=== PATIENT | female | born 1955 | race Caucasian/White ===

== ENCOUNTER 2017-08-14 10:57 | Day surgery (SDC) | payer BC ==
[~2017-08-14] VITALS: Ht 167.6 cm; Wt 89.4 kg
[2017-08-14 11:52] VITALS: BP 112/78
[2017-08-14] MEDS ORDERED: ESTR10TA PO (12:06)
[2017-08-14] MEDS ORDERED: BUPR300T4 PO (12:06)
[2017-08-14] MEDS ORDERED: LEVO88TA4 PO (12:06)
[2017-08-14] MEDS ORDERED: FEXO180T72 PO (12:06)
[2017-08-14] MEDS ORDERED: MULT1CAP19 PO (12:06)
[2017-08-14] MEDS ORDERED: TRAM50TA2 PO (12:06)
[2017-08-14] MEDS ORDERED: ARMO150T4 PO (12:06)
[2017-08-14] MEDS ORDERED: DOCU100C33 PO (12:06)
[2017-08-14] MEDS ORDERED: BIOT5000 PO (12:06)
[2017-08-14] MEDS ORDERED: MIDAZOLAM 1 MG/ML, 2ML ONE (12:17)
[2017-08-14] MEDS ORDERED: LACTATED RINGERS 1,000 ML IV SCH (12:20)
[2017-08-14] MEDS: FENTANYL PF 100 MCG/2ML IV PRN ×2 (12:25→15:50)
[2017-08-14] MEDS ORDERED: NEOSPORIN OINT, 15GM ONE (12:33)
[2017-08-14] MEDS ORDERED: EPINEPHRINE 1 MG/ML, 1ML ONE (12:33)
[2017-08-14] MEDS ORDERED: BUPIVACAINE/PF 0.5% ONE (12:33)
[2017-08-14] MEDS ORDERED: PROMETHAZINE 12.5 MG SUPP PR PRN (13:00)
[2017-08-14] MEDS ORDERED: PROMETHAZINE 25 MG/ML, 1ML IV PRN (13:00)
[2017-08-14] MEDS ORDERED: hydrALAzine 20 MG/ML, 1ML IV PRN (13:00)
[2017-08-14] MEDS ORDERED: OXYcodone 5 MG/5 ML ORAL.SOL UDC PO PRN (13:00)
[2017-08-14] MEDS ORDERED: LABETALOL 5MG/ML, 20ML IV PRN (13:00)
[2017-08-14] MEDS ORDERED: MIDAZOLAM 1 MG/ML, 2ML IV PRN (13:00)
[2017-08-14] MEDS ORDERED: ALBUTEROL/IPRATROPIUM 2.5MG/0.5MG, 3 ML NPPB PRN (13:00)
[2017-08-14] MEDS ORDERED: DIAZEPAM 5 MG/ML, 2ML IVPush PRN (13:00)
[2017-08-14] MEDS ORDERED: LORazepam 2 MG/ML, 1ML IVPush PRN (13:00)
[2017-08-14] MEDS ORDERED: MEPERIDINE/PF 25MG/0.5ML IVPush PRN (13:00)
[2017-08-14] MEDS ORDERED: ONDANSETRON 2MG/ML, 2ML IVPush PRN (13:00)
[2017-08-14] MEDS ORDERED: GABAPENTIN 300 MG CAPSULE ONE (13:51)
[2017-08-14] MEDS ORDERED: GABAPENTIN 300 MG CAPSULE PO SCH (14:00)
[2017-08-14] MEDS ORDERED: GABAPENTIN 300 MG CAPSULE PO ONE (14:00)
[2017-08-14] MEDS ORDERED: PROPOFOL 10 MG/ML, 20ML ONE (14:01)
[2017-08-14] MEDS ORDERED: ONDANSETRON 2MG/ML, 2ML ONE (14:01)
[2017-08-14] MEDS ORDERED: LIDOCAINE-MPF 2% ,5ML ONE (14:01)
[2017-08-14] MEDS ORDERED: DEXAMETHASONE 4 MG/ML, 1ML ONE (14:01)
[2017-08-14] MEDS ORDERED: CEFAZOLIN 1,000 MG ONE (14:01)
[2017-08-14] MEDS ORDERED: BUPIVACAINE/PF 0.5% INFIL ONE (14:28)
[2017-08-14] MEDS ORDERED: EPINEPHRINE 1 MG/ML, 1ML INFIL ONE (14:29)
[2017-08-14] MEDS ORDERED: LORazepam 2 MG/ML, 1ML ONE (15:24)
[2017-08-14] MEDS ORDERED: morphine SULFATE 10 MG/ML, 1ML ONE (15:24)
[2017-08-14] MEDS ORDERED: FENTANYL PF 100 MCG/2ML ONE (15:25)
[2017-08-14] MEDS: morphine SULFATE 10 MG/ML, 1ML IV PRN ×4 (15:41→16:24)
== END 2017-08-14 18:15 ==
LOC: OUT 10:57
PROVIDERS: ATTEND Orthopaedic Surgery
DX: S82.852A Displaced trimalleolar fracture of left lower leg, initial encounter for closed fracture (principal); E03.9 Hypothyroidism, unspecified; K21.9 Gastro-esophageal reflux disease without esophagitis; X58.XXXA Exposure to other specified factors, initial encounter; Y93.89 Activity, other specified; Y92.89 Other specified places as the place of occurrence of the external cause; Y99.8 Other external cause status; Z88.6 Allergy status to analgesic agent; Z88.1 Allergy status to other antibiotic agents; Z88.8 Allergy status to other drugs, medicaments and biological substances
CPT/HCPCS: 27822; C1713; J0171; J0690; J1100; J2060; J2250; J2270; J2405; J2704; J3010; J3490

== ENCOUNTER → 2017-10-29 | Outpatient (CLI) | payer BC ==
[~2017-10-29] MED LIST: ARMO150T4 PO; BIOT5000 PO; BUPR300T4 PO; DOCU100C33 PO; ESTR10TA PO; FEXO180T72 PO; LEVO88TA4 PO; MULT1CAP19 PO; TRAM50TA2 PO
== END | disposition home or self-care (01) ==
LOC: CFH 12:07
PROVIDERS: ATTEND Internal Medicine
DX: Z12.31 Encounter for screening mammogram for malignant neoplasm of breast (principal); M19.042 Primary osteoarthritis, left hand
CPT/HCPCS: 76001; 77063; 77067